=== PATIENT | female | born 1980 | race Two or more races ===

== ENCOUNTER → 2023-02-09 | Emergency (ER) | payer OTHER ==
[~2023-02-09] VITALS: Ht 170.2 cm; Wt 104.3 kg
[~2023-02-09] MED LIST: CYCLOBENZAPRINE10 MG PO; LEVAQUIN500 MG PO; MIRALAX510 GM PO; ORTHO-CYCLEN1 TAB; SYNTHROID50 MCG; URIN D.S. TABLE1 TAB PO
== END | disposition left against medical advice (07) ==
LOC: ER 02:41
DX: Z53.21 Procedure and treatment not carried out due to patient leaving prior to being seen by health care provider (principal)

== ENCOUNTER 2024-10-10 10:44 | Outpatient (CLI) | payer OTHER | END 2024-10-10 10:47 | disposition home or self-care (01) | LOC: RAD 10:44 | DX: K59.09 Other constipation (principal); R10.13 Epigastric pain; K59.4 Anal spasm; K64.9 Unspecified hemorrhoids; D12.6 Benign neoplasm of colon, unspecified; K62.89 Other specified diseases of anus and rectum; R10.11 Right upper quadrant pain; K21.9 Gastro-esophageal reflux disease without esophagitis; K92.2 Gastrointestinal hemorrhage, unspecified; K60.2 Anal fissure, unspecified ==